=== PATIENT | male | born 1995 | race African-American/Black ===

== ENCOUNTER 2023-04-02 20:42 | Emergency (ER) | payer SELFPAY ==
[2023-04-02] MEDS ORDERED: Acetaminophen/oxyCODONE 325-5 MG Tab PO ONE (21:22)
== END 2023-04-02 21:59 | disposition left against medical advice (07) ==
LOC: DL.ED 20:42
DX: S00.03XA Contusion of scalp, initial encounter (principal); F17.210 Nicotine dependence, cigarettes, uncomplicated; W18.30XA Fall on same level, unspecified, initial encounter
CPT/HCPCS: 70450; 99282; 99283